=== PATIENT | female | born 1985 | race African-American/Black ===

== ENCOUNTER → 2016-11-11 | Outpatient (CLI) | payer OTHER ==
[2016-09-09 14:16] VITALS: BP 123/61
[2016-11-11 14:06] LABS: BLOOD UREA NITROGEN 13 mg/dL (7-18); CALCIUM 8.7 mg/dL (8.5-10.1); CARBON DIOXIDE 29.3 mmol/L (21-32); CHLORIDE 109 mmol/L (98-107); CREATININE 0.84 mg/dL (0.55-1.02); GLUCOSE 80 mg/dL (65-99); SODIUM 146 mmol/L (136-145); eGFR BLACK RACES > 60 (>60); eGFR NON BLACK RACES > 60 (>60)
[2016-11-11 14:12] LABS: BILIRUBIN,URINE NEGATIVE (NEGATIVE); BLOOD/HEMOGLOBIN,URINE 1+ (NEGATIVE); GLUCOSE, URINE NEGATIVE (NEGATIVE); KETONES,URINE NEGATIVE (NEGATIVE); LEUKOCYTE ESTERASE ,URINE 2+ (NEGATIVE); NITRITES,URINE NEGATIVE (NEGATIVE); PROTEIN,URINE 2+ (NEGATIVE); UROBILINOGEN,URINE 1+ (NORMAL)
[2016-11-11 14:16] LABS: SERUM PREGNANCY TEST, QUAL NEGATIVE <10 mIU/mL
[2016-11-11 14:19] LABS: BASOPHILS % (AUTO) 0.2 % (0.2-1.0); EOSINOPHILS # (AUTO) 0.1 x10^3/uL (0.0-0.2); EOSINOPHILS % (AUTO) 2.6 % (0.9-2.9); HEMATOCRIT 36.3 % (36.0-47.0); LYMPHOCYTES # (AUTO) 2.3 X10^3/uL (1.3-2.9); LYMPHOCYTES % (AUTO) 42.5 % (21.0-51.0); MEAN CORPUSCULAR HEMOGLOBIN 28.7 pg (27.0-34.0); MEAN CORPUSCULAR VOLUME 86.8 fL (80.0-100.0); MEAN PLATELET VOLUME 7.8 fL (7.4-11.0); MONOCYTES # (AUTO) 0.4 x10^3/uL (0.3-0.8); MONOCYTES % (AUTO) 7.4 % (0.0-13.0); NEUTROPHILS # (AUTO) 2.6 x10^3/uL (2.2-4.8); NEUTROPHILS % (AUTO) 47.3 % (42.0-75.0); PLATELET COUNT 229 X10^3/uL (150.0-450.0); RED BLOOD COUNT 4.19 X10^6/uL (3.5-5.4); WHITE BLOOD COUNT 5.5 X10^3/uL (3.6-10.0)
[2016-11-11 14:23] LABS: COLOR,URINE DARK YELLOW (YELLOW)
[2016-11-11 14:24] LABS: APPEARANCE,URINE CLEAR (CLEAR); BACTERIA,URINE 1+ /HPF (NEGATIVE); RBC,URINE RARE /HPF (NEGATIVE); SQUAMOUS EPITHELIAL CELL,UR NUMEROUS /HPF (NEGATIVE)
== END ==
LOC: LAB 13:16
PROVIDERS: ATTEND Specialist
DX: Z01.818 Encounter for other preprocedural examination (principal); Z30.2 Encounter for sterilization
CPT/HCPCS: 36415; 80048; 81001; 84703; 85025; 85610; 85730; 86850; 86900; 86901; 87086

== ENCOUNTER 2016-11-18 06:12 | Day surgery (SDC) | payer OTHER ==
[2016-11-18] MEDS ORDERED: NS 50 ML IV + SPIKE MINIBAG* 50 ML IV ONE (06:34)
[2016-11-18] MEDS ORDERED: ANCEF VIAL 1 GM ONE (06:34)
[2016-11-18] MEDS ORDERED: D5 1/2 NS 1000 ML 1,000 ML IV ONE (06:34)
[2016-11-18] MEDS ORDERED: FENTANYL INJ 250 mcg ONE (07:10)
[2016-11-18] MEDS ORDERED: BENADRYL INJ 50 MG VIAL IVP PRN (08:12)
[2016-11-18] MEDS ORDERED: REGLAN INJ 10 MG VIAL IVP PRN (08:12)
[2016-11-18] MEDS ORDERED: PHENERGAN INJ 25 MG IVP PRN (08:12)
[2016-11-18] MEDS ORDERED: DILAUDID INJ IVP PRN (08:12)
[2016-11-18] MEDS ORDERED: ZOFRAN INJ 4 MG VIAL IVP PRN (08:12)
[2016-11-18] MEDS ORDERED: MOTRIN TAB 800 MG PO ONE (09:08)
[2016-11-18] MEDS ORDERED: SUPRANE IN ONE (09:13)
[2016-11-18] MEDS ORDERED: ROBINUL ONE (09:13)
[2016-11-18] MEDS ORDERED: DIPRIVAN VIAL ONE (09:13)
[2016-11-18] MEDS ORDERED: NORCURON INJ 10 MG VIAL ONE (09:13)
[2016-11-18] MEDS ORDERED: ZOFRAN INJ 4 MG VIAL ONE (09:13)
[2016-11-18] MEDS ORDERED: QUELICIN (OR ANECTINE) ONE (09:13)
[2016-11-18] MEDS ORDERED: REGLAN INJ 10 MG VIAL ONE (09:13)
[2016-11-18] MEDS ORDERED: NEOSTIGMINE INJ ONE (09:13)
[2016-11-18 09:56] VITALS: BP 124/85
== END 2016-11-18 09:50 | disposition home or self-care (01) | DRG 745 ==
LOC: SURG1 06:12
PROVIDERS: ATTEND Specialist
PROC: 0U574ZZ Destruction of Bilateral Fallopian Tubes, Percutaneous Endoscopic Approach (ICD-10-PCS; principal; 2016-11-18 07:30)
DX: Z30.2 Encounter for sterilization (principal)
CPT/HCPCS: A4216; A4222; J0330; J0690; J2405; J2710; J2765; J3010; J3490; J7042